=== PATIENT | female | born 1955 | race Caucasian/White ===

== ENCOUNTER 2022-04-09 14:43 | Outpatient (REF) | payer MEDICARE, SELFPAY ==
[2022-04-09 19:02] LABS: MANUAL DIFF FLAG NO
[2022-04-09 19:07] LABS: Basophils Percent Auto 0.6 % (0-2); Eosinophils Absolute Auto 0.3 X10*3/uL (0.0-0.4); Eosinophils Percent Auto 4.3 % (0-4); Hematocrit 40.5 % (37.0-47.0); Hemoglobin 13.3 g/dl (12.0-16.0); Imm Gran Abs Auto 0.02 X10*3/uL (0.00-0.03); Imm Gran Pct Auto 0.3 % (0.0-0.4); Lymphocytes Absolute Auto 1.9 X10*3/uL (1.2-4.9); Lymphocytes Percent Auto 27.9 % (20-40); Mean Corpuscular HGB Conc 32.8 g/dl (31.0-35.0); Mean Corpuscular Hemoglobin 29.7 pg (27.0-33.0); Mean Corpuscular Volume 90.4 fL (80.0-98.0); Mean Platelet Volume 9.4 fL (9.4-12.3); Monocytes Absolute Auto 0.5 X10*3/uL (0.1-1.2); Monocytes Percent Auto 7.8 % (2-11); Neutrophils Percent Auto 59.1 % (45-73); Platelet Count 268 X10*3/uL (160-400); Red Blood Count 4.48 X10*6/uL (4.20-5.50); Red Cell Distribution Width 13.2 % (11.0-16.0); White Blood Count 6.8 X10*3/uL (4.8-10.8)
[2022-04-09 19:19] LABS: Alanine Aminotransferase 20 U/L (0-31); Albumin Level 4.2 g/dL (3.5-5.0); Alkaline Phosphatase 63 U/L (39-117); Anion Gap 15 (12-20); Aspartate Amino Transferase 14 U/L (5-31); Bilirubin Total 0.4 mg/dL (0.0-1.0); Blood Urea Nitrogen 20 mg/dL (9-16); C Reactive Protein 0.43 mg/dL (< or = 0.50); Calcium 9.7 mg/dL (8.4-10.2); Carbon Dioxide 28 mmol/L (22-29); Chloride 103 mmol/L (96-108); Estimated Glomerular Filt Rate > 60; Glucose Random 103 mg/dL (60-115); Sodium 142 mmol/L (135-145); Total Protein 6.7 g/dL (6.5-8.0)
[2022-04-09 19:41] LABS: Free T4 (Free Thyroxine) 0.84 ng/dL (0.71-1.85); Thyroid Stimulating Hormone 1.61 uIU/mL (0.32-4.0); Vitamin D 25-OH Total 18.3 ng/mL (>30)
[2022-04-09 19:46] LABS: Erythrocyte Sedimentation Rate 10 MM/HR (0-20)
[2022-04-09 19:49] LABS: Folate 8.4 ng/mL (> or = 4.0); Vitamin B12 385 pg/mL (200-900)
[2022-04-11 22:32] LABS: Lyme Abs Screen <0.90 index
== END 2022-04-09 14:44 | disposition home or self-care (01) ==
LOC: HO.MANLDS 14:43
PROVIDERS: Visit Provider Physician Assistant
DX: R60.0 Localized edema (principal); I10 Essential (primary) hypertension; R53.83 Other fatigue
CPT/HCPCS: 36415; 80053; 82306; 82607; 82746; 84439; 84443; 85025; 85652; 86140; 86617; 86618

== ENCOUNTER 2022-04-17 14:53 | Outpatient (REF) | payer MEDICARE, SELFPAY ==
[2022-04-17 19:21] LABS: Appearance Urine CLOUDY; Color Urine YELLOW; Glucose Urine UA NEG (NEG); Leukocyte Esterase Urine 1+ (NEG); Nitrite Urine POS (NEG); Specific Gravity - Urine <= 1.005 (1.005-1.025); UACC Culture Trigger YES; Urine Blood 1+ (NEG); Urine Ketones NEG (NEG); Urine Protein 1+ MG/DL (NEG-TRACE)
[2022-04-17 19:28] LABS: Amorphous Sediment Urine 1+ /LPF; Bacteria Urine 2+ /LPF; RBC Urine 0-2 /HPF (0); Squamous Epithelial Cell Urine 1+ /LPF; WBC Urine 0-2 /HPF (0-4)
== END 2022-04-17 14:54 | disposition home or self-care (01) ==
LOC: HO.MANLDS 14:53
PROVIDERS: Visit Provider Physician Assistant
DX: R30.0 Dysuria (principal)
CPT/HCPCS: 81001; 87086; 87088; 87186

== ENCOUNTER 2025-01-29 13:40 | Outpatient (REF) | payer SELFPAY ==
[2025-01-29 13:49] LABS: Appearance Urine Clear; Color Urine Yellow; Glucose Urine UA Negative (Negative); Leukocyte Esterase Urine Negative (Negative); Nitrite Urine Negative (Negative); PH 5.5 (5.0-9.0); Specific Gravity - Urine 1.025 (1.005-1.025); UMIC TRIGGER UACC YES; Urine Blood Trace (Negative); Urine Ketones Trace mg/dL (Negative); Urine Protein Negative (Neg-Trace)
[2025-01-29 13:54] LABS: Bacteria Urine Trace (None Seen); Hyaline Casts Urine 0-2 /LPF (0-2); WBC Urine 0-5 /HPF (0-5)
== END 2025-01-29 13:41 | disposition home or self-care (01) ==
LOC: HO.MANLNP 13:40
PROVIDERS: Visit Provider Physician Assistant
DX: R30.0 Dysuria (principal)
CPT/HCPCS: 81001

== ENCOUNTER 2025-02-12 08:35 | Outpatient (REF) | payer SELFPAY ==
--- OUTSIDE RECORDS SUMMARY | 2025-02-12 08:38 | XMS_ITS | Data Portability ---
Author Organization [facility] Home Service Address [address] [place] [address] Assessment No assessment recorded. Plan of Treatment Reminders Order Date Submit Date Provider Last Modified By Organization Details Last Modified Time Details Appointments ANNUAL EXAM 2025 10:30A M BOBBY MACIAS Not available Not available Not available Lab urinalysi s complete, reflex culture 2024 025 [facility], [address] [place] [address], [id number], 02/01/2025 12:11:54 CMP, serum or plasma 2024 025 [facility], [address] [place] [address], [id number], 01/29/2025 10:08:51 CBC w/ auto diff 2024 025 [facility], [address] [place] [address], [id number], 01/29/2025 10:08:51 lipid panel, blood 2024 025 [facility], [address] [place] [address], [id number], 01/29/2025 10:08:52 hemoglobi n A1c, QN, blood 2024 025 [facility], [address] [place] [address], [id number], 01/29/2025 10:08:51 TSH + free T4, serum 2024 025 [facility], [address] [place] [address], [id number], 01/29/2025 10:08:51 vitamin B12 + folate, serum or blood 2024 025 [facility], [address] [place] [address], [id number], 01/29/2025 10:08:51 vitamin D, 25-hydrox y, total, serum 2024 025 [facility], [address] [place] [address], [id number], 01/29/2025 10:08:51 CMP, serum or plasma 2023 024 [facility], [address] [place] [address], [id number], 01/22/2024 13:52:06 CBC w/ auto diff 2023 024 [facility], [address] [place] [address], [id number], 01/22/2024 13:52:06 lipid panel, blood 2023 024 [facility], [address] [place] [address], [id number], 01/22/2024 13:52:06 vitamin D, 25-hydrox y, total, serum 2023 024 [facility], [address] [place] [address], [id number], 01/22/2024 13:52:06 CMP, serum or plasma 2022 023 [facility], [address] [place] [address], [id number], 01/10/2023 13:38:12 lipid panel, blood 2022 023 [facility], [address] [place] [address], [id number], 01/11/2023 08:03:37 CBC w/ auto diff 2022 023 [facility], [address] [place] [address], [id number], 01/10/2023 12:37:26 urinalysi s, dipstick 2021 022 [facility], [address] [facility], [address], [place], [address], 04/17/2022 14:27:47 urinalysi s complete, reflex culture 2021 022 [facility], [address] [place] [address], [id number], 04/18/2022 12:29:40 Referral None recorded. Procedures None recorded. Surgeries None recorded. Imaging None recorded. Medication Orders losartan 50 mg tablet [address] [facility] #2024, [address] [place], [id number], 01/22/2024 13:56:30 Zithromax Z-Reagan 250 mg tablet 2023 024 santiago [facility]/Pharmacy #2024, [address] [place], [address], 01/29/2025 09:40:24 albuterol sulfate HFA 90 mcg/actua tion aerosol inhaler [address] [facility]/Pharmacy #2024, [address] [place], [address], 01/08/2023 13:55:26 losartan 50 mg tablet 2022 023 [facility]2025, [address] [facility], [place], [address], 01/08/2023 13:55:27 omeprazol e 20 mg capsule,d elayed release 2021 022 DORITA Not available 08/01/2022 15:05:26 Bactrim DS 800 mg-160 mg tablet 2021 022 [email or web address] [id number], [address], [place], [id number], 01/22/2024 13:30:06 Patient TargetsNo targets recorded. Patient Instructions Encounter Date Encounter Id Patient Instructions Last Modified By Organization Details Last Modified Time 01/22/2024 [id number] quadricep muscle strain: rehab exercises [email or web address] Not available 01/22/2024 13:39:15 Reason for Referral None Reported. Results Created Date Observation Date Name Description Value Unit Range Abnormal Flag Note LastModifiedBy Organization Detail LastModifiedTime 04/17/2004/17/2022 urina lysis , dipst ick Leukocytes Modera te Not Available [facility] [place] [facility] [address] [facility] [address], [place], [address], 04/17/2022 14:01:04 04/17/20 22 04/17/2022 urina lysis , dipst ick Nitrite positi ve Not Available [facility] [place] [facility] [address] [facility] [address], [place], [address], 04/17/2022 14:01:04 04/17/20 22 04/17/2022 urina lysis , dipst ick Urobilinogen 2 Not Available [facility] [address] [facility] [address], [place], [address], 04/17/2022 14:01:04 04/17/20 22 04/17/2022 urina lysis , dipst ick Protein 30 Not Available [facility] [place] [facility] [address] [facility] [address], [place], [address], 04/17/2022 14:01:04 04/17/20 22 04/17/2022 urina lysis , dipst ick pH 7.5 Not Available [facility] [place] [facility] [address] [facility] [address], [place], [address], 04/17/2022 14:01:04 04/17/20 22 04/17/2022 urina lysis , dipst ick Blood Modera te Not Available [facility] [place] [facility] [address] [facility] [address], [place], [address], 04/17/2022 14:01:04 04/17/20 22 04/17/2022 urina lysis , dipst ick Specific [place] 1.010 Not Available [facility] [place] [facility] [address] [facility] [address], [place], [address], 04/17/2022 14:01:04 04/17/20 22 04/17/2022 urina lysis , dipst ick Ketone Negati ve Not Available [facility] [place] [facility] [address] [facility] [address], [place], [address], 04/17/2022 14:01:04 04/17/20 22 04/17/2022 urina lysis , dipst ick Bilirubin Negati ve Not Available [facility] [place] [facility] [address] [facility] [address], [place], [address], 04/17/2022 14:01:04 04/17/20 22 04/17/2022 urina lysis , dipst ick Glucose Negati ve Not Available [facility] [place] [facility] [address] [facility] [address], [place], [address], 04/17/2022 14:01:04 04/17/20 22 04/17/2022 urina lysis , dipst ick Appearance Slight ly Cloudy Not Available [facility] [place] [facility] [address] [facility] [address], [place], [address], 04/17/2022 14:01:04 04/17/20 22 04/17/2022 urina lysis , dipst ick Color Dark Yellow Not Available [facility] [place] [facility] [address] [facility] [address], [place], [address], 04/17/2022 14:01:04 01/23/20 23 01/21/2023 MAMMO , scree rosa, digit al, bilat eral No observ ation [facility] [address], [place], [address], 01/22/2023 14:55:43 Result Notes None recorded. Problems Name Problem SNOMED Code Status Onset Date Resolution Date Notes Provider Name and Address Organization Details Recorded Time Urinary incontin ence 254541979 Active 2018 Not Available [facility] 3 21:31:01 Edema of lower extremit y 591011702 Active 2021 Not Available [facility] 3 21:31:01 Fatigue 94769619 Active 2021 Not Available [facility] 3 21:31:02 Dysuria 68667323 Active 2021 Not Available [facility] 3 21:31:02 Contact dermatit is 16308056 Active 2021 Not Available [facility] 3 21:31:02 Gastroes ophageal reflux disease 441141173 Active 2021 Not Available [facility] 3 21:31:01 Lumbago with sciatica 491591064 Active 2022 BOBBY MACIAS [address] [place], [address], [facility] 3 13:55:43 Acute bronchit is 47474399 Active 2022 BOBBY MACIAS [address] [place], [address], [facility] 3 10:40:10 Quadrice ps weakness 187226515 Active 2023 BOBBY MACIAS [address] [place], [address], [facility] 4 13:38:06 Acute otitis media 9039294 Active 2023 BOBBY MACIAS [address] [place], [address], [facility] 4 13:52:26 Asthma 337588067 Active 2017 sever periopera tive asthma/ resp failure Not Available [facility] 3 21:31:01 Elijah gregory 426623958 Active 2017 gall stone pancreati tis s/p sphincter otomy Not Available [facility] 3 21:31:02 Common bile duct calculus 490930841 Active 2017 stricture Not Available [facility] 3 21:31:02 Impaired fasting glycemia 391503308 Active 2017 Not Available [facility] 3 21:31:02 Microsco pic hematuri a 452843589 Active 2017 Not Available [facility] 3 21:31:01 [facility] hyperten ryland 20527655 Active 2017 Not Available [facility] 3 21:31:02 Fracture of ankle 07965197 Active 1995 Not Available [facility] 3 21:31:01 Notes:Some problems listed i n Document: #[id number] could not be added to this patient's chart. Please review this document and add these problems to the patient's chart manually as needed. Problem Notes None recorded. Procedures Surgical History Date Name Laterality Status Provider Name and Address Organization Details Recorded Time 022 Suture/Staple removal completed BOBBY MACIAS [address] [place], [address], [facility] 08/01/2022 15:07:22 021 Cerumen Removal completed BOBBY MACIAS [address] [place], [address], [facility] 08/30/2021 11:52:29 017 Date of Last Pap Smear completed JAY JAY Santos [address] [place], [address], [facility] 04/01/2018 15:20:35 017 [facility] [address] [place], [address], [facility] 04/01/2018 15:20:20 016 Most Recent Mammogram completed [facility] [address] [place], [address], [facility] 04/01/2018 15:21:52 008 Colonoscopy completed [facility] 09/15/2019 08:38:35 008 Cholecystectomy completed [facility] [address] [place], [address], [facility] 04/01/2018 15:27:33 Imaging Results Imaging Date Name Status LastModified by Organiz ation Details LastModified Time 01/21/2023 MAMMO, screening, digital, bilateral completed [email or web address] [facility] [address] [place], [address], 01/22/2023 14:55:43 Procedure Notes None recorded. Medical Equipment None Reported. Allergies Allergen ID Allergen Name Allergen Category Reaction Reaction Severity Criticality Documentation Date Start Date Code Code System Note Provider Name and Address Organization Details Recorded Time 1455 Levaquin medicatio n hives moderate Not available 03/28/2018 05044 2 RxNorm BOBBY MACIAS [address] [place], [address], [facility] 0 15:48:37 1456 Product containin g angiotens in-conver ting enzyme inhibitor (product) medicatio n cough moderate Not available 03/28/2018 55017 009 [facility] 8 15:35:51 Medications Name Sig Start Date Stop Date Status Note LastModified by Organization Details LastModified Time losartan 50 mg tablet TAKE 1 TABLET BY MOUTH EVERY DAY active Not Available Not Available No t Available prednisone 10 mg tablet PLEASE SEE ATTACHED FOR DETAILED DIRECTION S 01/21 completed Not Available Not Available Not Available oxybutynin chloride ER 10 mg tablet,exte nded release 24 hr TAKE 1 TABLET BY MOUTH EVERY DAY 01/21 completed Not Available Not Available Not Available azithromyci n 250 mg tablet TAKE 2 TABLETS BY MOUTH TODAY, THEN TAKE 1 TABLET DAILY FOR 4 DAYS DIRECTED 01/29 completed Not Available Not Available Not Available fluconazole 150 mg tablet TAKE 1 TABLET BY MOUTH EVERY 72 HOURS FOR 2 DOSES/ROBERT ES active Not Available Not Available No t Available penicillin V potassium 500 mg tablet 04/01 completed Not Available Not Available Not Available sulfamethox azole 800 mg-trimetho prim 160 mg tablet TAKE 1 TABLET BY MOUTH TWICE A DAY FOR 3 DAYS 01/21 completed Not Available Not Available Not Available betamethaso ne valerate 0.1 % topical cream APPLY SPARINGLY TO AFFECTED AREA EVERY DAY active Not Available Not Available No t Available sulfacetami de sodium 10 % eye drops 04/01 completed Not Available Not Available Not Available baclofen 10 mg tablet TAKE 1 TABLET BY MOUTH THREE TIMES A DAY FOR 7 DAYS 01/21 completed Not Available Not Available Not Available losartan 25 mg tablet TAKE 2 TABLETS BY MOUTH EVERY DAY 02/17 completed Not Available Not Available Not Available omeprazole 20 mg capsule,del ayed release TAKE 1 CAPSULE BY MOUTH EVERY DAY active Not Available Not Available No t Available bisacodyl 5 mg tablet,cesia yed release TAKE 4 TABLETS BY MOUTH 1 TIME THE DAY BEFORE PROCEDURE WITH 8 OUNCES OF WATER FOR 1 DAY 02/17 completed Not Available Not Available Not Available ibuprofen 600 mg tablet TAKE 1 TABLET BY MOUTH 4 TIMES A DAY active Not Available Not Available No t Available estradiol 0.01% (0.1 mg/gram) vaginal cream USE 1 GM VAGINALLY EVERY NIGHT FOR TWO WEEKS THEN TWICE WEEKLY active Not Available Not Available No t Available methylpredn isolone 4 mg tablets in a dose pack TAKE 6 TABLETS ON DAY 1 DIRECTED ON PACKAGE AND DECREASE BY 1 TAB EACH DAY FOR A TOTAL OF 6 DAYS 01/21 completed Not Available Not Available Not Available albuterol sulfate HFA 90 mcg/actuati on aerosol inhaler INHALE 2 PUFFS BY MOUTH EVERY 4 TO 6 HOURS NEEDED FOR SHORTNESS OF BREATH active Not Available Not Available No t Available nitrofurant oin monohydrate /macrocryst als 100 mg capsule TAKE 1 CAPSULE BY MOUTH 2 TIMES A DAY,X5 DAYS 01/21 completed Not Available Not Available Not Available solifenacin 10 mg tablet TAKE 1 TABLET BY MOUTH EVERY DAY active Not Available Not Available No t Available peg 3350-electr olytes 236 gram-22.74 gram-6.74 gram-5.86 gram solution MIX AND DRINK DIRECTED 02/17 completed Not Available Not Available Not Available Myrbetriq 25 mg tablet,exte nded release TAKE 1 TABLET BY MOUTH EVERY DAY 01/29 completed Not Available Not Available Not Available Vitals Date Recorded Body height Oxygen saturation Oxygen saturation in Arterial blood by Pulse oximetry Heart rate Systolic blood pressure Diastolic blood pressure Provider Name and Address Organization Details Last Updated DateTime 2 154.94 cm 97 % 97 % 92 /min 142 mm[Hg] 82 mm[Hg] Nesha Tinsley [facility] 2 13:55:52 Date Recorded Body height Oxygen saturation Oxygen saturation in Arterial blood by Pulse oximetry Heart rate Systolic blood pressure Diastolic blood pressure Provider Name and Address Organization Details Last Updated DateTime 2 154.94 cm 97 % 97 % 109 /min 140 mm[Hg] 80 mm[Hg] Nesha Tinsley [facility] 2 14:49:55 Date Recorded Body height Body mass index (BMI) Body weight Oxygen saturation Oxygen saturation in Arterial blood by Pulse oximetry Heart rate Systolic blood pressure Diastolic blood pressure Provider Name and Address Organization Details Last Updated DateTime 3 154.94 cm 35.9 kg/m2 78614.9 1 g 98 % 98 % 89 /min 134 mm[Hg] 82 mm[Hg] Nesha Tinsley [facility] 3 13:37:06 Date Recorded Body weight Heart rate Oxygen saturation Oxygen saturation in Arterial blood by Pulse oximetry Systolic blood pressure Diastolic blood pressure Provider Name and Address Organization Details Last Updated DateTime 4 46084.4 9 g 96 /min 98 % 98 % 140 mm[Hg] 88 mm[Hg] Niru Hartley [facility] 4 13:31:29 Date Recorded Body height Body mass index (BMI) Body weight Heart rate Oxygen saturation Oxygen saturation in Arterial blood by Pulse oximetry Systolic blood pressure Diastolic blood pressure Provider Name and Address Organization Details Last Updated DateTime 5 154.94 cm 38 kg/m2 47363.0 7 g 96 /min 98 % 98 % 134 mm[Hg] 78 mm[Hg] Zoila Diamondmond [facility] 5 09:42:00 Social History Question Answer Notes LastModified by Organizat ion Details LastModified Time Tobacco Smoking Status Former Smoker has 1 cigarette maybe once or twice a month for her entire smoking history started smoking in her '[facility] 02/17/2021 09:04:11 What Was The Date Of Your Most Recent Tobacco Screening? 01/29/2025 [email or web address] Information not available 01/29/2025 Sex: Unknown Functional Status None recorded. Mental Status None recorded. Family History Relationship Description Onset Age of this Age Resolved Age Notes LastModified by Organization Details LastModified Time Sister Malignant tumor of breast 40 50 [email or web address] Not available 04/01 15:23:05 Mother Malignant tumor of esophagus 65 65 chroni c gerd, non smoker , no alcoho l [email or web address] Not available 04/01/2018 15:24:03 Mother Essential hypertension [email or web address] Not available 15:24:29 Father Essential hypertension [email or web address] Not available 15:24:29 Father Alzheimer's disease 74 [email or web address] Not available 04/01 15:24:46 Medical History No medical history recorded. Gynecological History Statement/Question Response If Post Menopausal, Age at Menopause 54 Abnormal Pap Y Sexually Active? Y STIs/STDs N HPV Vaccine N Date of Last Pap Smear 08/30/2017 Sexual Problems? N Most Recent Mammogram 04/18/2016 Age at Menarche 14 Age at First Child 23 Obstetrics History GPAL:G 2 P 2 0 0 2 Type Value Full Term 2 Living 2 Total 2 Immunizations Vaccine Type Date Status Note Provider Nam e and Address Organization Details Recorded Time COVID-19, mRNA, LNP-S, PF, 30 mcg/0.3 mL dose 1 completed Not Available [facility] 05/13/2023 21:31:02 zoster, unspecified formulation 4 completed Isiah muller, [facility] 07/10/2024 07:17:55 zoster, unspecified formulation 4 completed Niru Hartley yohana, [facility] 09/09/2024 10:09:30 influenza, unspecified formulation 4 completed Niru muller, [facility] 09/09/2024 10:09:38 COVID-19, mRNA, LNP-S, PF, 30 mcg/0.3 mL dose 1 completed Not Available [facility] 05/13/2023 21:31:02 COVID-19, mRNA, LNP-S, PF, 30 mcg/0.3 mL dose 1 completed Not Available [facility] 05/13/2023 21:31:02 Past Encounters Encounter ID Performer Location Encounter Start Date Encounter Closed Date Diagnosis/Indication Diagnosis SNOMED-CT Code Diagnosis ICD10 Code Diagnosis Note [id number] February [facility] [address] [facility], [place] [address] 04/01/2018 14:58:49 04/01/2018 16:02:30 Asthma 281057660 J45.909 stable Microscopic hematuria 19 8248344 R31.21 chronic, has had negative work up with urology no uti sx she is on vesicare for urinary incontinen ce she no longer sees urology Essential hypertension 58425212 I10 stable Adult [facility] th examination 895120018 Z00.01 Active or passive immunization 299283582 Z23 Tobacco user 105145999 Z 72.0 very infrequent smoker, counselled of course, the harms of smoking Impaired f asting glycemia 602557592 R73.01 [id number] February [facility] [address],[place] [address] 11/11/2018 15:24:50 11/11/2018 16:34:09 Asthma 027953414 J45.909 stable Essential hypertension 97066101 I10 stable on losartan - has been advised to check with pharmacist on recall of certain manufactur ers Tobacco user 452407583 Z 72.0 very infrequent smoker, counselled of course, the harms of smoking maybe has one per year Impaired f asting glycemia 858959520 R73.01 Screening procedure 2012 5006 Z13.9 [id number] February JAY JAY Garrison [facility] [address] [facility],[place] [address] 09/15/2019 15:24:45 09/15/2019 16:30:25 Adult health examination 050047576 Z00.00 mammo is scheduled Active or passive immunization 165535210 Z23 getting flu shot at work Asthma 764176920 J45.90 9 stable intermitte nt use of proair Microscopic hematuria 19 4438008 R31.21 chronic, has had negative work up with urology no uti sx she is on vesicare for urinary incontinen ce she no longer sees urology Essential hypertension 55829894 I10 stable Tobacco user 059669289 Z 72.0 very infrequent smoker, counselled of course, the harms of smoking Impaired f asting glycemia 580799032 R73.01 Screening for malignant neoplasm of colon 048388209 Z12.11 Body mass index 30+ - obesity 819656203 Z68.33 weight loss goal for 6 months: 15 lb weight loss Vitamin D deficiency 347 91096 E55.9 [id number] BOBBY MACIAS [facility] [address] [facility],[place] [address] 06/17/2020 15:31:48 06/17/2020 15:58:41 Asthma 720080318 J45.909 stable Dysuria 19188864 R30.9 will treat for UTI based on symptoms and dipstick will send urine out for culture [id number] BOBBY MACIAS [facility] [address] [facility],[place] [address] 08/24/2020 10:20:51 08/24/2020 15:49:01 Essential hypertension 43148186 I10 BP excellent will continue to monitor Asthma 812128698 J45.90 9 stable Benign ess ential hypertension 7890875 I10 BP is excellent today Screening mammography 24 714949 Z12.31 set up at [facility] Screening for malignant neoplasm of colon 561538897 Z12.11 sent in for referral [id number] EAGLE TRYBA, [facility] [address] [facility] [address] [address] 02/17/2021 08:56:49 02/17/2021 10:08:48 Asthma 591739757 J45.909 stable will call insurance about maintenanc e inhalers that are covered Hypertensive disorder 38 668778 I10 BP is fine no side effects with medication will continue on dosage Pain of bi lateral hands 7248490377 7330651 M79.642 will fu with XR results [id number] BOBBY MACIAS [facility] [address] [facility] [address] [address] 08/08/2021 08:52:07 08/08/2021 09:41:21 Overactive urinary bladder 085444538 N32.81 will trial another medication Adult heal th examination 368319264 Z00.00 BP recheck 130/82BW was great, cholestero l is a little elevated will work on diet and exercise Lipoma of head and/or neck 431874606 D17.0 will fu with derm for excision [id number] BOBBY MACIAS [facility] [address] [facility],[place] [address] 08/30/2021 11:35:54 08/30/2021 16:57:05 Contact dermatitis 01109630 L23.7 will fu topical cream Impacted c erumen in right ear 2528705296 606650 H61.21 resolved [id number] BOBBY MACIAS [facility] [address] [facility] [address] [address] 04/09/2022 13:35:41 04/10/2022 08:23:54 Essential hypertension 40604731 I10 BP excellent will continue to monitor Edema of l ower extremity 741948132 R60.0 will fu with bloodwork Fatigue 12153188 R53.83 will fu with lab work [id number] BOBBY MACIAS [facility] [address] [facility] [address] [address] 04/13/2022 09:26:31 04/13/2022 14:13:00 Essential hypertension 31371992 I10 BP excellent will continue to monitor [id number] BOBBY MACIAS [facility] [address] [facility] [address] [address] 04/17/2022 13:48:52 04/18/2022 08:43:17 Dysuria 48079362 R30.0 will treat for UTI based on symptoms and dipstick will send urine out for culturesta rt on probiotic [id number] BOBBY MACIAS [facility] [address] [facility] [address] [address] 08/01/2022 14:34:12 08/01/2022 16:38:22 Gastroesophageal reflux disease 505947169 K21.9 will give patient a script for GI upset Removal of suture 665546 01 Z48.02 two sutures removedno significan t bleeding [id number] BOBBY MACIAS [facility] [address] [facility] [address] [address] 01/08/2023 13:20:32 01/09/2023 08:40:43 Active or passive immunization [id number] Z23 up to date Adult heal th examination [id number] Z00.00 BP recheck 134/82BW was great, cholestero l is a little elevated will work on diet and exercise Asthma [id number] J45.90 9 stable will call insurance about maintenanc e inhalers that are covered Hypertensive disorder [id number] I10 BP is fine no side effects with medication will continue on dosage [id number] BOBBY MACIAS [facility] Internal [facility] [address] [facility] [address] [address] 01/22/2024 13:19:38 01/22/2024 14:37:53 Quadriceps weakness [id number] M62.81 will have her try some PT exercises at home Adult heal th examination [id number] Z00.00 needs yearly lab work Acute otitis media 62271 03 H65.03 will set up with abx, incidental infection Hypertensive disorder [id number] I10 BP is fine no side effects with medication will continue on dosage [id number] BOBBY MACIAS [facility] [address] [facility] [address] [address] 01/29/2025 09:22:20 01/29/2025 11:05:21 Adult health examination [id number] Z00.00 needs yearly lab work Dysuria [id number] R30.0 will treat for UTI based on symptoms and dipstick will send urine out for culturesta rt on probiotic Health Concerns Section Related Observation LastModified by Organization Detai ls LastModified Time None Recorded Concern Status LastModified by Organization Details LastModified Time None Recorded Advance Directives Directive None Recorded Payers Encounter Date Sequence Insurance Name Policy Number Policy [place] Covered Member ID [place] Member ID Guarantor Name 04/17/2022 1 [facility] [id number] Sherie Wong [id number] Sherie Wong 08/01/2022 1 [facility] [id number] Sherie Wong [id number] Sherie Wong 01/08/2023 1 [facility] [id number] Sherie Wong [id number] Sherie Wong 01/22/2024 1 [facility]: MEDICARE PPO BLUE (MEDICARE REPLACEMENT PPO) [id number] Sherie Wong [id number] Sherie Wong 01/29/2025 1 [facility]: MEDICARE PPO BLUE (MEDICARE REPLACEMENT PPO) [id number] Sherie Wong [id number] Sherie Wong Notes Date Note Type Note Provider Name and Address Organization Details Recorded Time 04/17/20 22 text/htm l UTI symptoms the patient reports for the past few days she has had frequency, burning, incomplete emptying of the bladder the patient reports that she got so AZO in the pharmacy, helping with the discomfort going to [facility] tomorrow BOBBY MACIAS [address] [place] [address], [place], [address], [facility] 04/17/2022 14:33:47 08/01/20 22 text/htm l c/o suture removal the patient had two sutures placed for bleed due to laceration of varicose vein posterior lower left leg will start on omeprazole, found OTC worked really well to control her GERDwill give her a script no issuessutures removed BOBBY MACIAS [address] [place], [address], [facility] 08/01/2022 15:09:14 01/09/20 23 text/htm l Annual WellnessReported bypatient.Diet and Nutrition:diet is high in salt;diet is high in fat, low in fiber;high carbohydrate meals; discussed vitamin and supplement use; discussed portion control; discussed maintaining calcium balance; discussed diet improvement Fracture Risk:no history of fractures; no recent explained fracture; no sudden unexplained fractures; no previous musculoskeletal injuries Physical Activity:exercises on a regular basis; recent increase in physical activity; good physical condition; discussed weightbearing activities; discussed exercise habits Additional Lifestyle Factors:no tobacco use; drinks alcohol (mild-moderate) Depression Risk:never feels sad, empty, or tearful; no loss of interest in activities; no significant changes in weight; no sleep disturbances or insomnia; no agitation; no loss of energy; no feelings of worthlessness or guilt; no thoughts of suicide; no history of depression; no history of mood disorders Hearing:no loss of hearing Vision:no vision problems weight gain, needs to work on diet and exercise as she does admit to having a more sedentary lifestyleworking on walking more arthritis in her left hand, trigger finger of ring finger will be seeing Dr. Jacey Ruffin for incontinencecurrently using pads BOBBY MACIAS [address] [place], [address], [facility] 01/08/2023 14:02:09 01/22/20 24 text/htm l Annual WellnessReported bypatient.Diet and Nutrition:diet is high in salt;diet is high in fat, low in fiber;high carbohydrate meals; discussed vitamin and supplement use; discussed portion control; discussed maintaining calcium balance; discussed diet improvement Fracture Risk:no history of fractures; no recent explained fracture; no sudden unexplained fractures; no previous musculoskeletal injuries Physical Activity:exercises on a regular basis; recent increase in physical activity; good physical condition; discussed weightbearing activities; discussed exercise habits Additional Lifestyle Factors:no tobacco use; drinks alcohol (mild-moderate) Depression Risk:never feels sad, empty, or tearful; no loss of interest in activities; no significant changes in weight; no sleep disturbances or insomnia; no agitation; no loss of energy; no feelings of worthlessness or guilt; no thoughts of suicide; no history of depression; no history of mood disorders Hearing:no loss of hearing Vision:no vision problems the patient reports that she is getting pain in left side quad musclehurts with sitting then standing after prolonged periods of time the patient has a severe deep achethe patient only happens occasionally BOBBY MACIAS [address] [place], [address], [facility] 01/22/2024 14:06:28 01/30/20 25 text/htm l Annual WellnessReported bypatient.Diet and Nutrition:diet is high in salt;diet is high in fat, low in fiber;high carbohydrate meals; discussed vitamin and supplement use; discussed portion control; discussed maintaining calcium balance; discussed diet improvement Fracture Risk:no history of fractures; no recent explained fracture; no sudden unexplained fractures; no previous musculoskeletal injuries Physical Activity:exercises on a regular basis; recent increase in physical activity; good physical condition; discussed weightbearing activities; discussed exercise habits Additional Lifestyle Factors:no tobacco use; drinks alcohol (mild-moderate) Depression Risk:never feels sad, empty, or tearful; no loss of interest in activities; no significant changes in weight; no sleep disturbances or insomnia; no agitation; no loss of energy; no feelings of worthlessness or guilt; no thoughts of suicide; no history of depression; no history of mood disorders Hearing:no loss of hearing Vision:no vision problems BOBBY MACIAS [address] [place], [address], [facility] 01/29/2025 10:17:54 OBGyn Episode No OBEpisode recorded.
[2025-02-12 13:16] LABS: MANUAL DIFF FLAG NO
[2025-02-12 13:28] LABS: Basophils Absolute Auto 0.1 X10*3/uL (0.0-0.2); Basophils Percent Auto 0.7 % (0-2); Eosinophils Absolute Auto 0.4 X10*3/uL (0.0-0.4); Eosinophils Percent Auto 6.1 % (0-4); Hemoglobin 13.6 g/dl (12.0-16.0); Imm Gran Abs Auto 0.02 X10*3/uL (0.00-0.03); Imm Gran Pct Auto 0.3 % (0.0-0.4); Lymphocytes Absolute Auto 1.7 X10*3/uL (1.2-4.9); Lymphocytes Percent Auto 23.4 % (20-40); Mean Corpuscular HGB Conc 33.2 g/dl (31.0-35.0); Mean Corpuscular Hemoglobin 29.5 pg (27.0-33.0); Mean Corpuscular Volume 88.9 fL (80.0-98.0); Mean Platelet Volume 9.3 fL (9.4-12.3); Monocytes Absolute Auto 0.5 X10*3/uL (0.1-1.2); Monocytes Percent Auto 7.1 % (2-11); Neutrophils Absolute Auto 4.4 x10*3/uL (2.0-8.3); Neutrophils Percent Auto 62.4 % (45-73); Platelet Count 308 X10*3/uL (160-400); Red Blood Count 4.61 X10*6/uL (4.20-5.50); Red Cell Distribution Width 13.2 % (11.0-16.0)
[2025-02-12 13:46] LABS: Estimated Average Glucose 123 mg/dL; Hemoglobin A1C 142.8993 umol/L; Hemoglobin A1c % 5.9 % (<6.0); Total Hemoglobin (HGBA1C) 3471.7579 umol/L
[2025-02-12 13:52] LABS: Alanine Aminotransferase 27 U/L (0-31); Albumin Level 4.1 g/dL (3.5-5.0); Alkaline Phosphatase 66 U/L (39-117); Anion Gap 9 (12-20); Aspartate Amino Transferase 23 U/L (5-31); Bilirubin Total 0.3 mg/dL (0.0-1.0); Blood Urea Nitrogen 23 mg/dL (9-16); Calcium 9.1 mg/dL (8.4-10.2); Carbon Dioxide 30 mmol/L (22-29); Chloride 105 mmol/L (96-108); Cholesterol 206 mg/dL (<200); Estimated Glomerular Filt Rate > 60; Glucose Random 123 mg/dL (60-115); HDL Cholesterol 47 mg/dL (>40); LDL Cholesterol Calculated 133 mg/dL (<100); Potassium 4.3 mmol/L (3.3-5.1); Sodium 140 mmol/L (135-145); Triglycerides 131 mg/dL (<150)
[2025-02-12 14:02] LABS: Vitamin B12 483 pg/mL (200-900)
[2025-02-12 14:19] LABS: Thyroid Stimulating Hormone 2.16 uIU/mL (0.32-4.0)
[2025-02-18 17:27] LABS: VITAMIN D (1,25 OH) D3 40 pg/mL; Vit D (1,25-Dihydroxy) Total 40 pg/mL (18-72); Vitamin D (1,25 OH) D2 <8 pg/mL
== END 2025-02-12 08:36 | disposition home or self-care (01) ==
LOC: HO.MANLDS 08:35
PROVIDERS: Visit Provider Physician Assistant
DX: Z13.89 Encounter for screening for other disorder (principal)
CPT/HCPCS: 36415; 80053; 80061; 82607; 82652; 83036; 84436; 84443; 85025